=== PATIENT | female | born 1965 | race Two or more races ===

== ENCOUNTER 2020-03-29 21:11 | Emergency (ER) | payer MEDICAID, OTHER ==
[~2020-03-29] VITALS: Ht 167.6 cm; Wt 90.7 kg
[2020-03-29] MEDS ORDERED: IV NS 0.9% 500 ML IV ONE (21:30)
--- NOTE | 2020-03-29 21:30 | NUR ---
MATTHEW 102 FROM [facility] FOR C/O LOW BLOOD SUGAR OF 40s.D10 250ML GIVEN ETA . CURRENT BS: 196. vs checked. seen by
--- NOTE | 2020-03-29 21:34 | NUR ---
BRENNON TALKING TO PT DAUGHTER CLEMENT REGARDING PT CARE.
--- NOTE | 2020-03-29 21:42 | NUR ---
per dr velasquez she spoke with pts daughter. daughter does not want any heroic measures. 'just wants to keep pt comfortable'. per dr. velasquez, cancel order for iv fluids and iv insertion. Addendum: 03/29/20 at 2149 by DCABANOS also ordered to cancel all blood draws.
--- NOTE | 2020-03-29 21:58 | NUR ---
report given to landen verdugo at [facility].
--- NOTE | 2020-03-29 22:05 | NUR ---
[facility] [place] [place] [place] [place] [id number].
--- NOTE | 2020-03-29 22:24 | NUR ---
[facility] ETA 90MIN-2 HRS.
--- NOTE | 2020-03-29 23:09 | NUR ---
report given to [facility] car salesperson for [employer].
[2020-03-29 23:10] VITALS: BP 90/62
== END 2020-03-29 23:29 ==
LOC: ER 21:13
DX: U07.1 COVID-19 (principal); R62.7 Adult failure to thrive; E10.649 Type 1 diabetes mellitus with hypoglycemia without coma; I10 Essential (primary) hypertension; I25.2 Old myocardial infarction; D64.9 Anemia, unspecified; F32.9 Major depressive disorder, single episode, unspecified; F10.10 Alcohol abuse, uncomplicated; Y90.9 Presence of alcohol in blood, level not specified; Z68.32 Body mass index [BMI] 32.0-32.9, adult; Z88.0 Allergy status to penicillin; Z51.5 Encounter for palliative care
CPT/HCPCS: 71045-TC